=== PATIENT | male | born 2000 | race Caucasian/White ===

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

== ENCOUNTER 2022-12-08 19:35 | Emergency (ER) | payer BC ==
[2022-12-08] MEDS ORDERED: AMOXIC-POT CLAV 875-125MG 1 EACH TAB PO STA (19:58)
[2022-12-08] MEDS ORDERED: DIPH,PERTUS(ACELL)TETVAC-LF 0.5 ML VIAL IM ONE (19:58)
--- NOTE | 2022-12-08 20:41 | ED ---
Animal Bite HPI - General Chief Complaint: Animal Bite Stated Complaint: Dog bite hand and leg Time Seen by Provider: 12/08/22 19:50 Source: patient Mode of arrival: ambulatory Limitations: no limitations - History of Present Illness Initial Comments: 22-year-old male presents to the emergency department with reported dog bite to the right fifth digit and right calf. He was at his friend's house when his friend's dog bit him in the right calf and right fifth digit. Unknown if the dog is up-to-date on his vaccines however is a house animal and does not demonstrate any signs of rabid behavior. Patient is not up-to-date on his tetanus. He cleaned his wounds with hydrogen peroxide in all call. States he attempted to superglue his right fifth digit laceration. He denies pustular drainage from the site. Incident just happened prior to hospital arrival. Denies any issues with range of motion testing. No other alleviating, precipitating or modifying factors - Related Data Previous Rx's Medication Instructions Recorded Dicyclomine [Bentyl] 10 mg PO TID PRN #10 capsule 04/21/18 Ibuprofen [Motrin] 600 mg PO Q8HR PRN #30 tab 09/15/18 predniSONE 50 mg PO DAILY #5 tablet 09/15/18 Amoxic-Pot Clav 875-125Mg 1 tab PO Q12HR #14 tab 12/08/22 [Augmentin 875-125] Allergies Allergy/AdvReac Type Severity Reaction Status Date / Time No Known Allergies Allergy Verified 12/08/22 19:43 Review of Systems ROS Statement: Those systems with pertinent positive or pertinent negative responses have been documented in the HPI. ROS Other: All systems not noted in ROS Statement are negative. Past Medical History Past Medical History: No Reported History History of Any Multi-Drug Resistant Organisms: None Reported Past Surgical History: No Surgical Hx Reported Past Psychological History: ADD/ADHD Smoking Status: Never smoker Past Alcohol Use History: Occasional Past Drug Use History: None Reported General Exam Limitations: no limitations General appearance: alert, in no apparent distress Head exam: Present: atraumatic, normocephalic, normal inspection Extremities exam: Present: full ROM, tenderness (Over the right lateral calf and the right fifth digit), normal capillary refill. Absent: pedal edema, joint swelling, calf tenderness Skin exam: Present: abrasion (Over the right lateral calf with 2 puncture sites measuring 5 mm each), other (Patient has puncture site over the right lateral fifth digit. No retained foreign bodies. No active bleeding. Cap refill less than 2 seconds in all digits. 2+ radial ulnar pulses. Intact flexion at the MCP, DIP and PIP joints) Course Vital Signs 12/08/22 12/08/22 19:43 20:53 Temperature 98.1 F 97.8 F Pulse Rate 84 86 Respiratory 16 20 Rate Blood Pressure 129/78 122/78 O2 Sat by Pulse 100 Oximetry Medical Decision Making - Medical Decision Making Was pt. sent in by a medical professional or institution (, [facility], ARC WELDING MACHINE OPERATOR, urgent care, hospital, or senior care...) When possible be specific @ -No Did you speak to anyone other than the patient for history (EMS, parent, family, police, friend...)? What history was obtained from this source @ -No Did you review nursing and triage notes (agree or disagree)? Why? @ -I reviewed and agree with nursing and triage notes Were old charts reviewed (outside hosp., previous admission, EMS record, old EKG, old radiological studies, urgent care reports/EKG's, senior care records)? Report findings @ -No old charts were reviewed Differential Diagnosis (chest pain, altered mental status, abdominal pain women, abdominal pain men, vaginal bleeding, weakness, fever, dyspnea, syncope, headache, dizziness, GI bleed, back pain, seizure, CVA, palpatations, mental health, musculoskeletal)? @ -Dog bite, cat bite, retained foreign body, active bleeding, laceration, abrasion, cellulitis EKG interpreted by me (3pts min.). @ -As above X-rays interpreted by me (1pt min.). @ -Xray interpreted by me as no retained foreign bodies and no underlying bone fracture CT interpreted by me (1pt min.). @ -None done U/S interpreted by me (1pt. min.). @ -None done What testing was considered but not performed or refused? (CT, X-rays, U/S, labs)? Why? @ -None What meds were considered but not given or refused? Why? @ -Pain meds were offered however patient refused Did you discuss the management of the patient with other professionals (professionals i.e. , [facility], ARC WELDING MACHINE OPERATOR, lab, RT, psych nurse, social contact worker, shredder operator, teacher, hazard mitigation officer, mattress spring encaser)? Give summary @ -No Was smoking cessation discussed for >3mins.? @ -No Was critical care preformed (if so, how long)? @ -No Were there social determinants of health that impacted care today? How? (Homelessness, low income, unemployed, alcoholism, drug addiction, transportation, low edu. Level, literacy, decrease access to med. care, penitentiary, rehab)? @ -No Was there de-escalation of care discussed even if they declined (Discuss DNR or withdrawal of care, Hospice)? DNR status @ -No What co-morbidities impacted this encounter? (DM, HTN, Smoking, COPD, CAD, Cancer, CVA, ARF, Chemo, Hep., AIDS, mental health diagnosis, sleep apnea, morbid obesity)? @ -None Was patient admitted / discharged? Hospital course, mention meds given and route, prescriptions, significant lab abnormalities, going to OR and other pertinent info. @ -Upon arrival patient was placed into room 29. Thorough history and physical exam was performed. Injuries do not require laceration repair. X-rays performed of the right tib-fib and right hand which demonstrates no retained foreign bodies. Wounds are cleansed. Patient's tetanus is updated. He was given a dose of Augmentin. He'll be discharged home on Augmentin. Instructed to keep the areas clean and dry and monitor for any signs of infection. Return for any new or worsening symptoms. Patient agreeable to this plan and is discharged home in stable condition Undiagnosed new problem with uncertain prognosis? @ -Yes Drug Therapy requiring intensive monitoring for toxicity (Heparin, Nitro, Insulin, Cardizem)? @ -No Were any procedures done? @ -No Diagnosis/symptom? @ -Acute puncture, dog bites right lateral calf and right fifth digit Acute, or Chronic, or Acute on Chronic? @ -Acute Uncomplicated (without systemic symptoms) or Complicated (systemic symptoms)? @ -Uncomplicated Side effects of treatment? @ -No Exacerbation, Progression, or Severe Exacerbation? @ -No Poses a threat to life or bodily function? How? (Chest pain, [place], [place], pneumonia, PE, COPD, DKA, ARF, appy, cholecystitis, CVA, Diverticulitis, Homicidal, Suicidal, threat to staff... and all critical care pts) @ -No Disposition Clinical Impression: Dog bite Disposition: HOME SELF-CARE Condition: Stable Instructions (If sedation given, give patient instructions): Diphtheria/Pertussis/Tetanus Vaccine (By injection), Animal Bite (ED) Additional Instructions: Does take the antibiotics twice daily. Keep the area clean and covered. Follow up with your doctor and return should your wounds begin to look infected Prescriptions: Amoxic-Pot Clav 875-125Mg [Augmentin 875-125] 1 tab PO Q12HR #14 tab Is patient prescribed a controlled substance at d/c from ED?: No Referrals: None,Stated [Primary Care Provider] - 1-2 days Time of Disposition: 20:41
--- NOTE | 2022-12-08 20:41 | XR ---
EXAMINATION TYPE: XR tibia fibula RT DATE OF EXAM: 12/08/2022 8:10 PM INDICATION: Patient age:Male; 22 years old; Reason for study: dog bite; COMPARISON: None TECHNIQUE: The right tibia/fibula was examined in AP and lateral projections. FINDINGS: No evidence of any acute osseous pathology, joint dislocation, or soft tissue swelling is n oted. No radiopaque foreign body. IMPRESSION: No evidence of acute fracture.
--- NOTE | 2022-12-08 20:42 | XR ---
EXAMINATION TYPE: XR hand limited RT DATE OF EXAM: 12/08/2022 8:10 PM INDICATION: Patient age:Male; 22 years old; Reason for study: dog bite; COMPARISON: None TECHNIQUE: Frontal, lateral and oblique views of the right hand were obtained. FINDINGS: Normal alignment of the visualized joints. No acute osseous pathology is identified. No e vidence of soft tissue swelling. No radiopaque foreign body. IMPRESSION: No acute osseous pathology.
[2022-12-08 20:54] VITALS: BP 122/78; PULSE 86; RESP 20; TEMP 97.8
== END 2022-12-08 20:54 | disposition home or self-care (01) ==
LOC: EC 19:35
DX: S61.256A Open bite of right little finger without damage to nail, initial encounter (principal); S81.851A Open bite, right lower leg, initial encounter; Z23 Encounter for immunization; W54.0XXA Bitten by dog, initial encounter
CPT/HCPCS: 90471; 90715; 99283